=== PATIENT | female | born 1995 | race Two or more races ===

== ENCOUNTER 2018-03-11 20:21 | Emergency (ER) | payer OTHER ==
[~2018-03-11] VITALS: Ht 167.6 cm; Wt 67.1 kg
== END 2018-03-11 21:38 | disposition home or self-care (01) ==
LOC: ER 20:21
DX: J31.2 Chronic pharyngitis (principal); Z48.02 Encounter for removal of sutures

== ENCOUNTER → 2018-03-14 | Emergency (ER) | payer OTHER | END | disposition left against medical advice (07) | LOC: ER 21:28 | DX: Z53.20 Procedure and treatment not carried out because of patient's decision for unspecified reasons (principal) ==